=== PATIENT | male | born 1990 | race Caucasian/White ===

== ENCOUNTER 2020-08-12 10:36 | Inpatient (IN) | payer BC ==
[~2020-08-12] VITALS: Ht 188 cm; Wt 66.0 kg
[2020-08-12] MEDS ORDERED: POLYETHYLENE GLYCOL 17 GM PACKET PO PRN (11:30)
[2020-08-12] MEDS ORDERED: DOCUSATE 100 MG CAPSULE PO PRN (11:30)
[2020-08-12] MEDS ORDERED: ONDANSETRON ODT 4 MG PO PRN (11:30)
[2020-08-12] MEDS ORDERED: PLEASE ENTER ALLERGIES MC SCH (14:30)
[2020-08-12] MEDS ORDERED: PLEASE ENTER HEIGHT AND WEIGHT MC SCH (14:30)
[2020-08-12 15:17] VITALS: BP 138/80
[2020-08-12] MEDS ORDERED: BUSP5TAB2 PO (16:57)
[2020-08-12] MEDS ORDERED: BUSP10TA PO (16:58)
[2020-08-12] MEDS ORDERED: HYDR25CA PO (16:59)
[2020-08-12] MEDS ORDERED: ESCI5TAB25 PO (17:00)
[2020-08-12 19:45] VITALS: BP 133/90
[2020-08-12] MEDS: ACETAMINOPHEN 325 MG TABLET PO PRN (20:11)
[2020-08-12] MEDS: BUSPIRONE 5 MG TABLET PO SCH (20:11)
[2020-08-13 06:34] LABS: ALANINE AMINOTRANSFERASE 102 U/L (12-78); ALBUMIN 4.6 g/dL (3.4-5.0); ANION GAP 4 mmol/L (5-15); CALCIUM 9.8 mg/dL (8.5-10.1); CHLORIDE 107 mmol/L (98-107); CREATININE 1.03 mg/dL (0.7-1.3)
[2020-08-13 06:37] LABS: ALKALINE PHOSPHATASE 88 U/L (45-117); BILIRUBIN,TOTAL 0.8 mg/dL (0.2-1.0); CHOL/HDL RATIO 2.6; CHOLESTEROL, TOTAL 197 mg/dL (140-239); HDL CHOL % 39 % (26-37); HDL CHOLESTEROL (DIRECT) 77 mg/dL (40-60); LDL CHOLESTEROL,CALCULATED 105 mg/dL (54-169); LDL/HDL RATIO 1.4 (0.5-3.0); TRIGLYCERIDES 76 mg/dL (50-200); VLDL CHOLESTEROL 15 mg/dL (0-25)
[2020-08-13 06:42] LABS: BASOPHILS % (AUTO) 1 % (0-1); EOSINOPHILS % (AUTO) 1 % (1-7); LYMPHOCYTES % (AUTO) 33 % (22-44); MEAN CORPUSCULAR HEMOGLOBIN 33.6 pg (27.5-34.5); MEAN CORPUSCULAR HGB CONC 33.9 g/dL (33.2-36.2); MEAN PLATELET VOLUME 8.6 fL (7.4-10.4); MONOCYTES % (AUTO) 11 % (2-9); NEUTROPHILS % (AUTO) 53 % (42-75); PLATELET COUNT 205 x10^3/uL (130-400); RED CELL DISTRIBUTION WIDTH 13.2 % (9.4-14.8)
[2020-08-13 06:50] LABS: MD NO
[2020-08-13 07:37] VITALS: BP 118/75
[2020-08-13] MEDS: NICOTINE 14MG/24 HR PATCH.TD24 TD SCH (08:44)
[2020-08-13] MEDS: BUSPIRONE 5 MG TABLET PO SCH ×2 (08:44→20:22)
[2020-08-13] MEDS: ESCITALOPRAM 10MG TABLET PO SCH (13:47)
[2020-08-13 19:32] VITALS: BP 133/81
[2020-08-13] MEDS: DIVALPROEX 250 MG TABLET.DR PO SCH (20:22)
[2020-08-13 22:49] LABS: MICROSCOPIC NOT IND
[2020-08-14 07:17] VITALS: BP 139/89
[2020-08-14] MEDS: NICOTINE 14MG/24 HR PATCH.TD24 TD SCH (08:29)
[2020-08-14] MEDS: BUSPIRONE 5 MG TABLET PO SCH ×2 (08:29→20:20)
[2020-08-14] MEDS: ESCITALOPRAM 10MG TABLET PO SCH (08:29)
[2020-08-14] MEDS: ACETAMINOPHEN 325 MG TABLET PO PRN (18:12)
[2020-08-14 19:57] VITALS: BP 125/90
[2020-08-14] MEDS: ACAMPROSATE 333 MG TABLET.DR PO SCH (20:20)
[2020-08-14] MEDS: DIVALPROEX 250 MG TABLET.DR PO SCH (20:21)
[2020-08-15 07:24] VITALS: BP 127/80
[2020-08-15] MEDS: BUSPIRONE 5 MG TABLET PO SCH ×2 (08:49→20:32)
[2020-08-15] MEDS: ACAMPROSATE 333 MG TABLET.DR PO SCH ×3 (08:49→20:32)
[2020-08-15] MEDS: ESCITALOPRAM 10MG TABLET PO SCH (08:49)
[2020-08-15] MEDS: NICOTINE 14MG/24 HR PATCH.TD24 TD SCH (08:52)
[2020-08-15] MEDS: ACETAMINOPHEN 325 MG TABLET PO PRN (15:44)
[2020-08-15 19:20] VITALS: BP 110/69
[2020-08-15] MEDS: DIVALPROEX 250 MG TABLET.DR PO SCH (20:32)
[2020-08-16 07:11] VITALS: BP 120/79
[2020-08-16] MEDS: NICOTINE 14MG/24 HR PATCH.TD24 TD SCH (08:25)
[2020-08-16] MEDS: BUSPIRONE 5 MG TABLET PO SCH ×2 (08:26→20:50)
[2020-08-16] MEDS: ACAMPROSATE 333 MG TABLET.DR PO SCH ×3 (08:26→20:50)
[2020-08-16] MEDS: ESCITALOPRAM 10MG TABLET PO SCH (08:26)
[2020-08-16] MEDS: ACETAMINOPHEN 325 MG TABLET PO PRN (16:49)
[2020-08-16 19:30] VITALS: BP 125/83
[2020-08-16] MEDS: DIVALPROEX 250 MG TABLET.DR PO SCH (20:50)
[2020-08-17 07:28] VITALS: BP 114/74
[2020-08-17] MEDS: ACAMPROSATE 333 MG TABLET.DR PO SCH (09:35)
[2020-08-17] MEDS: BUSPIRONE 5 MG TABLET PO SCH (09:35)
[2020-08-17] MEDS: NICOTINE 14MG/24 HR PATCH.TD24 TD SCH (09:35)
[2020-08-17] MEDS: ESCITALOPRAM 10MG TABLET PO SCH (09:35)
[2020-08-17] MEDS ORDERED: HYDR-826 PO (09:43)
[2020-08-17] MEDS ORDERED: DIVA-59 PO (09:43)
[2020-08-17] MEDS ORDERED: NICO-486 TD (09:43)
[2020-08-17] MEDS ORDERED: ESCI10TA5 PO (09:43)
[2020-08-17] MEDS ORDERED: ACAM333T7 PO (09:43)
[2020-08-17] MEDS ORDERED: BUSP5TAB2 PO (09:43)
== END 2020-08-17 13:05 | disposition home or self-care (01) | DRG 885 ==
LOC: 3E 14:21
PROVIDERS: ADMIT Psychiatry & Neurology Psychosomatic Medicine; ATTEND Psychiatry & Neurology Psychosomatic Medicine
DX: F33.2 Major depressive disorder, recurrent severe without psychotic features (principal); R45.851 Suicidal ideations; F10.239 Alcohol dependence with withdrawal, unspecified; F41.1 Generalized anxiety disorder; G47.00 Insomnia, unspecified; F17.200 Nicotine dependence, unspecified, uncomplicated; F12.10 Cannabis abuse, uncomplicated; Z79.899 Other long term (current) drug therapy
CPT/HCPCS: 36415; 71045; 80053; 80061; 81003; 84443; 85025; 93005; Q0177